=== PATIENT | male | born 1975 | race Caucasian/White ===

== ENCOUNTER → 2018-08-13 07:23 | Outpatient (CLI) | payer MEDICAID | END | disposition home or self-care (01) | LOC: D.RAD 07:23 | DX: Z87.19 Personal history of other diseases of the digestive system (principal); D64.9 Anemia, unspecified ==

== ENCOUNTER 2018-09-01 10:22 | Day surgery (SDC) | payer MEDICAID ==
[~2018-09-01] VITALS: Ht 172.7 cm; Wt 97.7 kg
[2018-09-01 10:59] LABS: APTT 26.6 SECONDS (22.8-39.4); INR 1.05 (0.85-1.17); PROTIME 13.2 SECONDS (11.6-15.0)
[2018-09-01 11:02] LABS: ANION GAP 17.7 mmol/L (8-16); CALCIUM 9.5 mg/dL (8.5-10.1); CARBON DIOXIDE 23.3 mmol/L (21.0-32.0); CREATININE - SERUM 1.5 mg/dL (0.6-1.3)
[2018-09-01 11:09] LABS: HEMATOCRIT 41.7 % (42.0-54.0); HEMOGLOBIN 13.9 g/dL (13.5-17.5); MCH 26.6 pg (26.0-34.0); MCHC 33.3 g/dL (31.0-37.0); MCV 79.9 fL (80.0-100.0); RBC 5.22 10x6/uL (4.20-6.10); RDW 24.7 % (11.5-14.5); WBC 8.3 10x3/uL (4.8-10.8)
[2018-09-01 11:33] VITALS: BP 108/77; Ht 172.7 cm; Wt 97.7 kg
[2018-09-01] MEDS ORDERED: LIPITOR20 MG (11:42)
[2018-09-01] MEDS ORDERED: LISINOPRIL10 MG PO (11:42)
[2018-09-01] MEDS ORDERED: AMBIEN10 MG PO (11:42)
[2018-09-01] MEDS ORDERED: K-TAB10 MEQ PO (11:43)
[2018-09-01] MEDS ORDERED: FUROSEMIDE20 MG PO (11:43)
[2018-09-01] MEDS ORDERED: ALDACTONE25 MG PO (11:44)
[2018-09-01] MEDS ORDERED: COREG25 MG PO (11:44)
--- NOTE | 2018-09-08 15:47 | OP ---
PATIENT NAME: DAVID GARCIA MEDICAL RECORD: [id number] :77 LOCATION:[facility] ADMISSION DATE: SURGEON: MICKEY LEE DO DATE OF OPERATION: 09/01/2018 PROCEDURE: Colonoscopy with biopsies. INDICATIONS FOR PROCEDURE: History of small-bowel obstruction and anemia. SCOPE: [employer] video pediatric colonoscope. MEDICATIONS: Propofol 300 mg IV per anesthesia. WITHDRAWAL TIME: 7 minutes. ESTIMATED BLOOD LOSS: Minimal. COMPLICATIONS: None. FINDINGS: Informed consent was given. The patient was made comfortable with the above medication. After reaching an adequate level of sedation by slow IV push, the patient was placed on his left side. A digital rectal examination was performed and it was normal. The endoscope was then advanced under direct visualization through the rectum to the cecum/ileocolonic anastomosis. The endoscope was slowly withdrawn. Mucosa was carefully examined. The prep was good. There were 2 anastomosis found on this examination. The first was located at 20 cm. At this anastomosis, there was a small blind pouch measuring approximately 3-5 cm in length. This appeared normal. The endoscope was then traversed through the other lumen to the second anastomosis, which was located at approximately 75 cm. This was an ileocolonic anastomosis. This looked like a [id number]-vx-[id number] or end-to-side anastomosis just adjacent to the cecum. The anastomosis itself appeared slightly inflamed. There was some granulation tissue and some erythema and a small area of ulceration. The opening into the small intestine was too small for the endoscope to traverse. Biopsies were taken with cold forceps of the site to submit for histopathology. This was the only site on the entire examination that appeared abnormal. There were no polyps, diverticula, or other abnormalities visualized. The endoscope was retroflexed in the rectum with a normal appearing rectal wall. The endoscope was then withdrawn from the patient. The patient tolerated the procedure well and there were no complications. IMPRESSION: 1. Two separate anastomosis. The first was a colocolonic anastomosis at 20 cm and the second is an ileocolonic anastomosis at approximately 75 cm. The ileocolonic anastomosis revealed some inflammation and an ulceration as well as some stenosis. This is likely the cause of the patient's intermittent partial small bowel obstructive symptoms. Appearances of this ulcerated and inflamed area could be consistent with NSAID-induced ulcers or inflammatory bowel disease. Biopsies were taken. 2. Otherwise, normal colonoscopy. PLAN AND RECOMMENDATIONS: 1. Discharge home when recovery parameters are met. 2. Follow up biopsy specimen results. 3. Continue current diet and current medications. OPERATIVE REPORT [id number] DAVID GARCIA 4. Minimize use of NSAIDs. 5. If biopsies are normal, consider an inflammatory bowel disease [employer] panel. 6. Can consider upper endoscopy for small bowel biopsies, but I feel the reason for the patient's symptoms is related to his ileocolonic anastomosis and its stenosis. TRANSINT:[id number] Voice Confirmation ID: [id number] DOCUMENT ID: [id number] MICKEY LEE DO at 1547 CC: [id number] DICTATION DATE: 09/01/18 1341 [facility] [employer] SUPERVISOR: 09/01/18 1523 [facility] 09/01/18 [facility] [address] [place] [address]
== END 2018-09-01 14:26 | disposition home or self-care (01) ==
LOC: D.OPS 10:22 → EDSTATUS 12:00 → D.OPS 14:26
PROVIDERS: Anesthesiology
DX: K91.89 Other postprocedural complications and disorders of digestive system (principal); K52.9 Noninfective gastroenteritis and colitis, unspecified; K56.609 Unspecified intestinal obstruction, unspecified as to partial versus complete obstruction; Z01.812 Encounter for preprocedural laboratory examination; D64.9 Anemia, unspecified